=== PATIENT | female | born 1980 | race African-American/Black ===

== ENCOUNTER 2021-08-28 19:51 | Emergency (ER) | payer SELFPAY ==
[~2021-08-28] VITALS: Ht 167.6 cm; Wt 68.0 kg
[2021-08-28 20:40] VITALS: BP 160/110
--- NOTE | 2021-08-28 20:40 | NUR ---
BIBS C/O GETTING CAT FUR IN HER RIGHT EYE. VISUAL ACUITY DONE: R EYE:20/25 LEFT EYE: 20/25 BOTH: 20/20
[2021-08-28] MEDS ORDERED: FLUORESCEIN SODIUM OPHTH 1 EA STRIP OP ONE (21:00)
[2021-08-28] MEDS ORDERED: diphenhydrAMINE HCL 25 MG CAPSULE PO ONE (21:00)
[2021-08-28] MEDS ORDERED: IBUPROFEN 600 MG TABLET PO ONE (21:00)
[2021-08-28] MEDS ORDERED: FLUORESCEIN SODIUM OPHTH 1 EA STRIP ONE (21:01)
[2021-08-28] MEDS ORDERED: IV NS 0.9% 1,000 ML BAG IV ONE (21:30)
[2021-08-28] MEDS ORDERED: CIPR5DRO OP (21:56)
[2021-08-28] MEDS ORDERED: P-EP-92 PO (21:56)
[2021-08-28] MEDS ORDERED: MAG HYDROX/AL HYDROX/SIMETH 30 ML UDC PO ONE (22:00)
[2021-08-28] MEDS ORDERED: IBUPROFEN 600 MG TABLET ONE (22:07)
[2021-08-28] MEDS ORDERED: MAG HYDROX/AL HYDROX/SIMETH 30 ML UDC ONE (22:07)
[2021-08-28] MEDS ORDERED: diphenhydrAMINE HCL 25 MG CAPSULE ONE (22:07)
--- NOTE | 2021-08-28 23:41 | NUR ---
Patient discharged to home in stable condition. Written and verbal after care instructions given. Patient verbalizes understanding of instruction. IV removed. Catheter intact and site benign. Pressure and 4x4 applied to site. No bleeding noted. PT ambulatory with a steady gait
== END 2021-08-29 01:07 | disposition home or self-care (01) ==
LOC: ER 19:56
DX: S05.01XA Injury of conjunctiva and corneal abrasion without foreign body, right eye, initial encounter (principal); J30.9 Allergic rhinitis, unspecified; Z88.8 Allergy status to other drugs, medicaments and biological substances; Z91.048 Other nonmedicinal substance allergy status; Z60.2 Problems related to living alone; W22.8XXA Striking against or struck by other objects, initial encounter; Y93.89 Activity, other specified; Y92.89 Other specified places as the place of occurrence of the external cause; Y99.8 Other external cause status
CPT/HCPCS: 99284; Q0163